=== PATIENT | female | born 1935 | race Caucasian/White ===

== ENCOUNTER → 2016-03-11 | Outpatient (CLI) | payer OTHER | LOC: BHFA 09:45 | PROVIDERS: ATTEND Internal Medicine Cardiovascular Disease | DX: I49.1 Atrial premature depolarization (principal); I10 Essential (primary) hypertension; I27.1 Kyphoscoliotic heart disease; E78.5 Hyperlipidemia, unspecified ==

== ENCOUNTER → 2017-01-24 | Outpatient (CLI) | payer OTHER | LOC: BRMIMAGING 10:53 | PROVIDERS: ATTEND Family Medicine | DX: Z12.31 Encounter for screening mammogram for malignant neoplasm of breast (principal) | CPT/HCPCS: G0202 ==

== ENCOUNTER → 2017-06-03 | Outpatient (CLI) | payer OTHER | LOC: BRMIMAGING 09:30 | PROVIDERS: ATTEND Family Medicine | DX: Z13.820 Encounter for screening for osteoporosis (principal); M81.0 Age-related osteoporosis without current pathological fracture ==

== ENCOUNTER → 2017-08-23 | Outpatient (CLI) | payer OTHER | DX: I27.20 Pulmonary hypertension, unspecified (principal); I10 Essential (primary) hypertension ==

== ENCOUNTER 2018-01-30 11:13 | Emergency (ER) | payer OTHER ==
[2018-01-30] MEDS ORDERED: METOCLOPRAMIDE 10 MG/2 ML VIAL IVP ONE (12:48)
[2018-01-30] MEDS ORDERED: KETOROLAC 30 MG/1 ML SDV IVP ONE (12:48)
[2018-01-30 13:01] VITALS: BP 152/89
--- NOTE | 2018-01-30 13:41 | EDPHY ---
H & P Stated Complaint: awakened with ch/r jaw pain/sweats Time Seen by Provider: 01/30/18 12:41 HPI/ROS: CHIEF COMPLAINT: Headache, diaphoresis HISTORY OF PRESENT ILLNESS: The patient presents to the ED after she woke up this morning with a headache. She states it is consistent with her migraine headaches which she is not had several years. The patient has recently traveled to [facility] and returned from a long plane flight last night. She denies any fever or neck stiffness. She denies any infectious symptoms. The patient denies any history of fall or trauma. She is not anticoagulated. The patient currently states that her headache is moderate in nature. She took 2 aspirin prior to arrival without significant improvement of her symptoms. REVIEW OF SYSTEMS: A comprehensive 10 point review of systems is otherwise negative aside from elements mentioned in the history of present illness. Source: Patient Exam Limitations: No limitations - Personal History Current Tetanus Diphtheria and Acellular Pertussis (TDAP): Unsure - Medical/Surgical History Hx Asthma: No Hx Chronic Respiratory Disease: No Hx Diabetes: No Hx Cardiac Disease: Yes Hx Renal Disease: No Hx Cirrhosis: No Hx Alcoholism: No Hx HIV/AIDS: No Hx Splenectomy or Spleen Trauma: No Other PMH: cardiomyopathy/skin cancer, peripheral neuropathy, lasik surgery, hysterectomy, appendectomy as a child - Social History Smoking Status: Never smoked - Physical Exam Exam: General Appearance: Alert, no distress Eyes: Pupils equal and round no pallor or injection ENT, Mouth: Mucous membranes moist Respiratory: There are no retractions, lungs are clear to auscultation Cardiovascular: Regular rate and rhythm Gastrointestinal: Abdomen is soft and nontender, no masses, bowel sounds normal Neurological: A&O, normal motor function, normal sensory exam, normal cranial nerves Skin: Warm and dry, no rashes Musculoskeletal: Neck is supple nontender, specifically no meningeal symptoms Extremities: symmetrical, full range of motion Psychiatric: Patient is oriented X 3, there is no agitation Constitutional: Initial Vital Signs Temperature (C) 36.5 C 01/30/18 11:26 Heart Rate 84 01/30/18 11:26 Respiratory Rate 18 01/30/18 11:26 Blood Pressure 159/93 H 01/30/18 11:26 O2 Sat (%) 96 01/30/18 11:26 O2 Delivery Mode Room Air Allergies/Adverse Reactions: No Known Allergies Allergy (Verified 01/30/18 11:25) Home Medications: Medication Instructions Recorded Aspirin [Aspirin 81mg (*)] 81 mg PO HS 09/30/17 Atorvastatin Calcium [Lipitor 40 40 mg PO DAILY 09/30/17 mg (*)] C/E/Zn/Cu/OM3/DHA/EPA/LUT/ZEAX 1 each PO DAILY 09/30/17 [Preservision Areds 2 Softgel] Calcium Carbonate [Oyster Shell 500 mg PO DAILY 09/30/17 Calcium 500 mg (*)] Carboxymethylcellulose 1% [Refresh 1 drop EACHEYE DAILY PRN 09/30/17 Celluvisc (*)] DULoxetine [Cymbalta 60 MG (*)] 60 mg PO DAILY 09/30/17 Herbals/Supplements -Info Only 1 ea PO DAILY 09/30/17 Losartan Potassium [Cozaar 25 mg 25 mg PO DAILY 09/30/17 (*)] Metoprolol Tartrate [Lopressor 25 12.5 mg PO BID 09/30/17 mg (*)] Nitroglycerin [Nitrostat 0.4 mg 0.4 mg SL Q5M PRN 09/30/17 (*)] Nortriptyline HCl [Pamelor 10 mg 20 mg PO HS 09/30/17 (*)] Furosemide [Lasix 40 MG (*)] 40 mg PO DAILY #30 tab 10/02/17 Potassium Cl [Klor-Con 10 meq (RX)] 10 meq PO DAILY #30 tab 10/02/17 Medical Decision Making ED Course/Re-evaluation: The patient is nontoxic well-appearing. She presents the emergency department with a likely recurrent migraine. She has a normal neurologic examination and has no clinical evidence of meningitis. There is no history of fall or trauma and I doubt intracranial hemorrhage is a etiology of her presentation today. The patient had an IV established. She received Reglan and Toradol in the emergency department. I re-evaluated the patient at 1:40 p.m.. She is feeling much better and is in no acute distress. Her headache has resolved. Her neurologic examination remains normal. At this point time I do feel the patient can be discharged home with customary aftercare instructions and return precautions. Differential Diagnosis: Differential diagnosis considered includes intracranial hemorrhage, migraine headache, tension headache, meningitis - Data Points Laboratory Results: 01/30/18 11:47 POC Troponin I 0.01 ng/mL ng/mL (0.00-0.08) Medications Given: Discontinued Medications Ketorolac Tromethamine (Toradol) 30 mg IVP EDNOW ONE Stop: 01/30/18 12:49 Last Admin: 01/30/18 12:58 Dose: 30 mg Metoclopramide HCl (Reglan Injection) 10 mg IVP EDNOW ONE Stop: 01/30/18 12:49 Last Admin: 01/30/18 12:58 Dose: 10 mg Point of Care Test Results: Chemistry 01/30/18 11:47 POC Troponin I 0.01 ng/mL ng/mL (0.00-0.08) Departure - Departure Disposition: Home, Routine, Self-Care Clinical Impression: Migraine headache Condition: Good Instructions: Migraine Headache (ED) Additional Instructions: 1. Please return to the emergency department for any recurrent headache, vomiting, numbness, weakness, fever or other concerns. 2. Take Ibuprofen or Motrin 600 mg by mouth three times a day. 3. Please follow-up with your primary care provider as needed. Referrals: Cony Hull MD [Primary Care Provider] - As per Instructions
--- NOTE | 2018-01-30 14:50 | CPEKG ---
Test Reason : OPEN Blood Pressure : / mmHG Vent. Rate : 081 BPM Atrial Rate : 081 BPM P-R Int : 184 ms QRS Dur : 094 ms QT Int : 394 ms P-R-T Axes : 075 053 -04 degrees QTc Int : 458 ms Sinus rhythm Probable left atrial enlargement Confirmed by John Woody ([id number]) on 01/30/2018 2:50:02 PM Referred By: Confirmed By:John Woody
== END 2018-01-30 13:51 | disposition home or self-care (01) ==
DX: G43.909 Migraine, unspecified, not intractable, without status migrainosus (principal); G62.9 Polyneuropathy, unspecified; I42.9 Cardiomyopathy, unspecified; Z85.828 Personal history of other malignant neoplasm of skin
CPT/HCPCS: 93005; 96374; 96375; 99284; J1885; J2765; 84484-PO

== ENCOUNTER → 2018-02-01 | Outpatient (CLI) | payer OTHER | LOC: BRMIMAGING 12:39 | PROVIDERS: ATTEND Family Medicine | DX: Z12.31 Encounter for screening mammogram for malignant neoplasm of breast (principal) ==